=== PATIENT | female | born 1940 ===

== ENCOUNTER 2020-03-09 09:36 | Emergency (ER) | payer OTHER ==
[~2020-03-09] VITALS: Ht 144.8 cm; Wt 52.2 kg
== END 2020-03-09 14:42 | disposition home or self-care (01) ==
LOC: ER 09:36
DX: S00.03XA Contusion of scalp, initial encounter (principal); S30.0XXA Contusion of lower back and pelvis, initial encounter; R55 Syncope and collapse; R11.11 Vomiting without nausea; W18.09XA Striking against other object with subsequent fall, initial encounter; Y93.89 Activity, other specified; Y92.018 Other place in single-family (private) house as the place of occurrence of the external cause; Y99.8 Other external cause status